=== PATIENT | female | born 1955 | race Caucasian/White ===

== ENCOUNTER 2017-04-20 13:17 | Emergency (ER) | payer OTHER ==
[~2017-04-20] VITALS: Ht 154.9 cm; Wt 90.9 kg
[2017-04-20 13:18] VITALS: BP 140/74; PULSE 91; RESP 16; TEMP 98.3; O2SAT 99
[2017-04-20 15:09] LABS: AUTOMATED NEUTROPHIL # 9.1 TH/MM3 (1.8-7.7); BASOPHIL # 0.1 TH/MM3 (0-0.2); BASOPHIL % 0.7 % (0.0-2.0); EOSINOPHIL # 0.1 TH/MM3 (0-0.4); EOSINOPHIL % 0.8 % (0.0-4.0); HEMATOCRIT 48.9 % (35.0-46.0); HEMOGLOBIN 16.2 GM/DL (11.6-15.3); LYMPH % 16.8 % (9.0-44.0); MEAN CORPUSCULAR HEMOGLOBIN 28.2 PG (27.0-34.0); MEAN CORPUSCULAR HGB CONC 33.2 % (32.0-36.0); MEAN PLATELET VOLUME 7.5 FL (7.0-11.0); MONO % 5.4 % (0.0-8.0); MONOCYTE # 0.6 TH/MM3 (0-0.9); NEUT % 76.3 % (16.0-70.0); PLATELET COUNT 356 TH/MM3 (150-450); RED BLOOD COUNT 5.75 MIL/MM3 (4.00-5.30); RED CELL DISTRIBUTION WIDTH 14.1 % (11.6-17.2)
[2017-04-20 15:22] LABS: PROTHROMBIN TIME - PATIENT 10.4 SEC (9.8-11.6)
[2017-04-20 15:30] LABS: BACTERIA, URINE FEW /hpf; BILIRUBIN, URINE NEG (NEG); BLOOD, URINE NEG (NEG); CALCIUM OXALATE CRYSTALS,URINE MOD /hpf; GLUCOSE,URINE NEG (NEG); KETONE, URINE NEG (NEG); MUCUS URINE FEW /lpf (OCC); NITRITE,URINE NEG (NEG); SQUAMOUS EPITHELIAL CELL URINE 8 /hpf (0-5); URINE COLOR YELLOW (YELLW/STRAW); URINE LEUKOCYTE ESTERASE NEG (NEG)
[2017-04-20 15:34] LABS: AST (GOT) 18 U/L (15-37); BICARBONATE 28.1 MEQ/L (21.0-32.0); BLOOD UREA NITROGEN 16 MG/DL (7-18); CALCIUM 9.6 MG/DL (8.5-10.1); CHLORIDE 103 MEQ/L (98-107); GLOMERULAR FILTRATION RATE 42 ML/MIN (>89); GLUCOSE,RANDOM 98 MG/DL (74-106); MAGNESIUM 2.7 MG/DL (1.5-2.5); SODIUM (NA) 140 MEQ/L (136-145)
[2017-04-20 15:41] LABS: ALKALINE PHOSPHATASE 149 U/L (45-117); ALT (GPT) 25 U/L (10-53); TOTAL BILIRUBIN ADULT 0.6 MG/DL (0.2-1.0); TOTAL PROTEIN 8.6 GM/DL (6.4-8.2); TROPONIN I LESS THAN 0.02 NG/ML (0.02-0.05)
[2017-04-20] MEDS ORDERED: SODIUM CHLOR 0.9% 1000 ML INJ 1,000 ML IV ONE (15:47)
[2017-04-20] MEDS ORDERED: SODIUM CHLORIDE 0.9% FLUSH 10 ML FLUSH IVF PRN (16:00)
[2017-04-20] MEDS ORDERED: PROMETHAZINE INJ 25 MG/ML VIAL IM ONE (16:00)
[2017-04-20] MEDS ORDERED: MECLIZINE HCL 25 MG TAB PO ONE (16:00)
--- NOTE | 2017-04-20 16:02 | PD ---
HPI Chief Complaint: Dizziness Time Seen by Provider: 15:29 Travel History International Travel<30 days: No Contact w/Intl Traveler<30days: No Traveled to known affect area: No History of Present Illness HPI 61-year-old female presents the emergency department with 2 day history of vertiginous symptoms. Patient states she recently flew home from [place] 3 days ago. She states yesterday morning when she sat down and saw that she had sudden onset of vertiginous symptoms with nausea and vomiting. Patient has had this about a year ago in the past. She took some meclizine yesterday and symptoms seemed to improve. Patient had recurrent symptoms this morning which seemed worse with nausea, vomiting, and mild headache. Patient states no significant sinus congestion, ear pain, or sore throat. Patient currently is symptomatic with any movement such as sitting up or laying back or moving her head quickly. She denies visual changes or focal neurologic deficit. Headache is about a 1 out of 10. She is allergic to penicillin. PFSH Past Medical History Cardiovascular Problems: Yes (HTN) Diabetes: Yes Social History Alcohol Use: Yes Tobacco Use: No Substance Use: No Allergies-Medications (Allergen,Severity, Reaction): Coded Allergies: Penicillins (Verified Allergy, Unknown, 04/20/17) Reported Meds & Prescriptions Reported Meds & Active Scripts Active Phenergan (Promethazine HCl) 25 Mg Tablet 25 Mg PO Q6H PRN Zofran (Ondansetron HCl) 4 Mg Tab 4 Mg PO Q12HR PRN Review of Systems Except as stated in HPI: all other systems reviewed are Neg General / Constitutional: No: Fever, Chills Eyes: No: Diploplia, Blurred Vision, Photophobia, Drainage, Redness, Foreign Body Sensation, Pain, Tearing, Blind Spots, Visual changes, Blindness HENT: Positive: Headaches (mild.), Vertigo, No: Lightheadedness, Sore Throat, Rhinitis, Rhinorrhea, Congestion, Nosebleed, Neck Stiffness, Neck Pain, Dental Difficulties, Earache Cardiovascular: No: Chest Pain or Discomfort Respiratory: No: Cough, Shortness of Breath, Wheezing Gastrointestinal: Positive: Nausea, Vomiting, No: Diarrhea, Abdominal Pain Genitourinary: No: Dysuria Musculoskeletal: No: Pain Skin: No Rash Neurologic: No: Weakness Psychiatric: No: Depression Endocrine: No: Polydipsia Hematologic/Lymphatic: No: Easy Bruising Physical Exam Narrative GENERAL: Patient appears in mild to moderate distress SKIN: Warm and dry. Normal color. Normal turgor. No rash. HEAD: Atraumatic. Normocephalic. Nontender with palpation. EYES: Pupils equal and round. No scleral icterus. No injection or drainage. Notable rotational nystagmus with left lateral gaze. ENT: No nasal bleeding or discharge. Mucous membranes pink and moist. TMs are clear bilaterally. Pharynx is clear. Airway is patent. NECK: Trachea midline. Supple nontender. CARDIOVASCULAR: Regular rate and rhythm. RESPIRATORY: No accessory muscle use. Clear to auscultation. Breath sounds equal bilaterally. GASTROINTESTINAL: Abdomen soft, non-tender, nondistended. Hepatic and splenic margins not palpable. MUSCULOSKELETAL: Extremities without clubbing, cyanosis, or edema. No obvious deformities. NEUROLOGICAL: Awake and alert. No obvious cranial nerve deficits. Motor grossly within normal limits. Five out of 5 muscle strength in the arms and legs. Normal speech. PSYCHIATRIC: Appropriate mood and affect; insight and judgment normal. Data Data Last Documented VS Vital Signs Date Time Temp Pulse Resp B/P (MAP) Pulse Ox O2 Delivery O2 Flow Rate FiO2 04/20/17 16:04 98 04/20/17 13:18 98.3 91 16 Orders Orders Electrocardiogram (04/20/17 13:57) Complete Blood Count With Diff (04/20/17 13:57) Comprehensive Metabolic Panel (04/20/17 13:57) Magnesium (Mg) (04/20/17 13:57) Ckmb (Isoenzyme) Profile (04/20/17 13:57) Troponin I (04/20/17 13:57) Act Partial Throm Time (Ptt) (04/20/17 13:57) Prothrombin Time / Inr (Pt) (04/20/17 13:57) Urinalysis - C+S If Indicated (04/20/17 13:57) Electrocardiogram (04/20/17 15:47) Magnesium (Mg) (04/20/17 15:47) Ckmb (Isoenzyme) Profile (04/20/17 15:47) Troponin I (04/20/17 15:47) Act Partial Throm Time (Ptt) (04/20/17 15:47) Ct Brain W/O Iv Contrast(Rout) (04/20/17 15:47) Ecg Monitoring (04/20/17 15:47) Iv Access Insert/Monitor (04/20/17 15:47) Oximetry (04/20/17 15:47) Meclizine (Antivert) (04/20/17 16:00) Sodium Chloride 0.9% Flush (Ns Flush) (04/20/17 16:00) Sodium Chlor 0.9% 1000 Ml Inj (Ns 1000 M (04/20/17 15:47) Promethazine Inj (Phenergan Inj) (04/20/17 16:00) Labs Laboratory Tests Test 04/20/17 14:35 04/20/17 16:20 White Blood Count 12.0 TH/MM3 Red Blood Count 5.75 MIL/MM3 Hemoglobin 16.2 GM/DL Hematocrit 48.9 % Mean Corpuscular Volume 85.0 FL Mean Corpuscular Hemoglobin 28.2 PG Mean Corpuscular Hemoglobin Concent 33.2 % Red Cell Distribution Width 14.1 % Platelet Count 356 TH/MM3 Mean Platelet Volume 7.5 FL Neutrophils (%) (Auto) 76.3 % Lymphocytes (%) (Auto) 16.8 % Monocytes (%) (Auto) 5.4 % Eosinophils (%) (Auto) 0.8 % Basophils (%) (Auto) 0.7 % Neutrophils # (Auto) 9.1 TH/MM3 Lymphocytes # (Auto) 2.0 TH/MM3 Monocytes # (Auto) 0.6 TH/MM3 Eosinophils # (Auto) 0.1 TH/MM3 Basophils # (Auto) 0.1 TH/MM3 CBC Comment DIFF FINAL Differential Comment Prothrombin Time 10.4 SEC Prothromb Time International Ratio 1.0 RATIO Activated Partial Thromboplast Time 31.0 SEC 28.9 SEC Urine Color YELLOW Urine Turbidity HAZY Urine pH 6.0 Urine Specific [place] 1.022 Urine Protein TRACE mg/dL Urine Glucose (UA) NEG mg/dL Urine Ketones NEG mg/dL Urine Occult Blood NEG Urine Nitrite NEG Urine Bilirubin NEG Urine Urobilinogen 2.0 MG/DL Urine Leukocyte Esterase NEG Urine RBC 3 /hpf Urine WBC 1 /hpf Urine Squamous Epithelial Cells 8 /hpf Urine Calcium Oxalate Crystals MOD /hpf Urine Bacteria FEW /hpf Urine Mucus FEW /lpf Microscopic Urinalysis Comment CULT NOT INDICATED Blood Urea Nitrogen 16 MG/DL Creatinine 1.30 MG/DL Random Glucose 98 MG/DL Total Protein 8.6 GM/DL Albumin 4.0 GM/DL Calcium Level 9.6 MG/DL Magnesium Level 2.7 MG/DL 2.6 MG/DL Alkaline Phosphatase 149 U/L Aspartate Amino Transf (AST/SGOT) 18 U/L Alanine Aminotransferase (ALT/SGPT) 25 U/L Total Bilirubin 0.6 MG/DL Sodium Level 140 MEQ/L Potassium Level 4.0 MEQ/L Chloride Level 103 MEQ/L Carbon Dioxide Level 28.1 MEQ/L Anion Gap 9 MEQ/L Estimat Glomerular Filtration Rate 42 ML/MIN Total Creatine Kinase 63 U/L 58 U/L Troponin I LESS THAN 0.02 NG/ML LESS THAN 0.02 NG/ML MDM Medical Decision Making Medical Screen Exam Complete: Yes Emergency Medical Condition: Yes Medical Record Reviewed: Yes Differential Diagnosis Vertigo. Nausea vomiting. Intracranial bleed. Narrative Course Patient appears in mild to moderate distress. Labs ordered including CBC, CMP, PT PTT and INR. CT of the head is ordered. EKG is ordered. IV access is obtained patient is given 1000 mL normal saline bolus. Patient is given 50 mg meclizine by mouth as well as 25 mg Phenergan by mouth. Labs show mild leukocytosis and slightly elevated creatinine. Cardiac labs are normal. Urinalysis is normal. CT scan is negative for acute findings. EKG is unremarkable. Patient felt improved after treatment. Patient was discharged home with meclizine 25 mg every 6 hours #20. Patient also given Phenergan 25 mg every 6 hours when necessary #20. Patient is to rest and push fluids and follow-up with her primary care physician or return to emergency Department with worsening symptoms as necessary. Diagnosis Primary Impression: Vertigo Additional Impression: Nausea and vomiting Qualified Codes: R11.2 - Nausea with vomiting, unspecified Referrals: Primary Care Physician Patient Instructions: Benign Paroxysmal Positional Vertigo (ED), General Instructions Additional Instructions: Patient felt improved after treatment. Patient was discharged home with meclizine 25 mg every 6 hours #20. Patient also given Phenergan 25 mg every 6 hours when necessary #20. Patient is to rest and push fluids and follow-up with her primary care physician or return to emergency Department with worsening symptoms as necessary. Med/Other Pt SpecificInfo: Prescription(s) given Scripts Promethazine (Phenergan) 25 Mg Tablet 25 MG PO Q6H Y for NAUSEA OR VOMITING, #20 TAB 0 Refills Prov: Karissa Oneil MD 04/20/17 Ondansetron (Zofran) 4 Mg Tab 4 MG PO Q12HR Y for NAUSEA OR VOMITING, #20 TAB 0 Refills Prov: Karissa Oneil MD 04/20/17 Condition: Stable [place] Apr 20, 2017 16:02
[2017-04-20 16:04] VITALS: O2SAT 98
--- NOTE | 2017-04-20 16:32 | RADRPT ---
EXAM DATE/TIME: 04/20/2017 16:12 [facility] COMPARISON: No previous studies available for comparison. INDICATIONS : Vertigo with vomiting. RADIATION DOSE: 36.11 CTDIvol (mGy) MEDICAL HISTORY : Cardiovascular disease. Hypertension. Diabetes mellitus type 1. SURGICAL HISTORY : None. ENCOUNTER: Initial ACUITY: 2 days PAIN SCALE: 0/10 LOCATION: cranial TECHNIQUE: Multiple contiguous axial images were obtained of the head. Using automated exposure control and adj ustment of the mA and/or kV according to patient size, radiation dose was kept as low as reasonably a chievable to obtain optimal diagnostic quality images. DICOM format image data is available electro nically for review and comparison. FINDINGS: CEREBRUM: The ventricles are normal for age. No evidence of midline shift, mass lesion, hemorrhage or acute in farction. No extra-axial fluid collections are seen. POSTERIOR FOSSA: The cerebellum and brainstem are intact. The 4th ventricle is midline. The cerebellopontine angle i s unremarkable. EXTRACRANIAL: The visualized portion of the orbits is intact. SKULL: The calvaria is intact. No evidence of skull fracture. CONCLUSION: Normal examination. Arturo Forrester MD on April 20, 2017 at 16:27 Board Certified Radiologist. This report was verified electronically.
[2017-04-20 17:18] LABS: MAGNESIUM 2.6 MG/DL (1.5-2.5)
[2017-04-20 17:21] LABS: TROPONIN I LESS THAN 0.02 NG/ML (0.02-0.05)
[2017-04-20] MEDS ORDERED: ZOFR4TAB PO (17:21)
[2017-04-20] MEDS ORDERED: PROM25TA10 PO (17:21)
[2017-04-20 17:54] VITALS: BP 141/64; PULSE 68; RESP 17; O2SAT 98
--- NOTE | 2017-04-21 15:26 | EKG ---
Date Performed: 04/20/2017 Time Performed: 14:46:07 PTAGE: 61 years EKG: Sinus rhythm WITH SINUS ARRHYTHMIA MARKED LEFT AXIS DEVIATION LOW QRS VOLTAGE IN PRECORDIAL LEADS POSSIBLE ANTERI OR MYOCARDIAL INFARCTION ABNORMAL ECG NO PREVIOUS TRACING DOCTOR: Tylor Carrasco Interpretating Date/Time 04/21/2017 15:25:30
== END 2017-04-20 18:17 | disposition home or self-care (01) ==
LOC: NEPC 13:17
DX: R42 Dizziness and giddiness (principal); R11.2 Nausea with vomiting, unspecified; R51 Headache; R94.31 Abnormal electrocardiogram [ECG] [EKG]
CPT/HCPCS: 70450; 80053; 81001; 82550; 83735; 84484; 85025; 85610; 85730; 93005; 96372; 99285; J2550; J7030